=== PATIENT | female | born 1975 | race Caucasian/White ===

== ENCOUNTER 2024-09-18 08:59 | Emergency (ER) | payer BC ==
[2024-09-18 10:13] LABS: Absolute Eosinophils 0.1 K/uL (0-0.5); Absolute Lymphocytes (CBC) 1.3 K/uL (0.7-4.9); Absolute Monocytes 0.8 K/uL (0.1-1.3); Absolute Neutrophil 5.8 K/uL (1.8-8.0); Basophils % 0.4 % (0-1.3); Eosinophils % 1.2 % (0-4.4); Hematocrit 33.6 % (36.0-45.0); Hemoglobin 11.5 g/dL (12.0-15.0); Lymphocytes % 16.4 % (15.3-44.8); MCH 28.9 pg (27.0-35.0); MCHC 34.2 g/dL (32.0-36.0); MCV 84.5 fL (80-100); MPV 7.9 fL (7.6-11.3); Monocytes % 9.6 % (3.3-12.3); Neutrophils % 72.4 % (41.7-73.7); Nucleated Red Blood Cells % 0.1 % (0-0); Platelets 236 thou/uL (152-406); RBC Red Blood Cell Count 3.97 M/uL (3.86-4.86); Red Cell Distribution Width 12.8 % (12.1-15.2)
[2024-09-18 10:27] LABS: Anion Gap 7.1 mEq/L (5.0-15.0); BUN Blood Urea Nitrogen 15 mg/dL (7-18); Bicarbonate 27 mEq/L (21-32); Glomerular Filtration Rate 89 ml/min (=/>90); Glucose Level 103 mg/dL (74-106); Magnesium 1.8 mg/dL (1.6-2.4); NT PRO-BNP 127 pg/mL (<125); Potassium 4.1 mEq/L (3.5-5.1); Sodium Level 141 mEq/L (136-145)
[2024-09-18 10:29] LABS: Troponin High Sensitivity < 3.0 pg/mL (<58.9)
--- NOTE | 2024-09-18 10:53 | RAD REPORT ---
EXAMINATION: ONE VIEW CHEST XR CLINICAL INDICATION: PALPITATIONS TECHNIQUE: Frontal chest projection is submitted. Examination is limited by patient positioning and t echnique. COMPARISON: No prior exam. FINDINGS: The lungs are well inflated and clear. The heart is upper limit of normal in size. No displaced fract ures identified. IMPRESSION: No acute intrathoracic abnormalities.
--- NOTE | 2024-09-18 11:11 | ER ---
Nurse's Notes [facility] Name: Courtney Krause Age: 49 yrs Sex: Female : 1975 Arrival Date: 09/18/2024 Time: 08:59 Bed 17 Private MD: Diagnosis: Palpitations Presentation: 09/18 09:15 Chief complaint: EMS states: Near syncopal episode that became with palpitations, hb diaphoresis, and generally not feeling well when she got to work today. Coronavirus screen: At this time, the client does not indicate any symptoms associated with coronavirus-19. Ebola Screen: No symptoms or risks identified at this time. Initial Sepsis Screen: Does the patient meet any 2 criteria? No. Patient's initial sepsis screen is negative. Does the patient have a suspected source of infection? No. Patient's initial sepsis screen is negative. Risk Assessment: Do you want to hurt yourself or someone else? Patient reports no desire to harm self or others. Onset of symptoms was September 18, 2024. 09:15 Method Of Arrival: EMS: [facility] hb 09:15 Acuity: JOSE 3 hb Historical: - Allergies: 10:00 No Known Allergies; hb - Immunization history:: Adult Immunizations up to date. - Infectious Disease History:: Denies. - Family history:: not pertinent. - Social history:: Smoking status: Patient denies any tobacco usage or history of. - Hospitalizations: : No recent hospitalization is reported. Vital Signs: 09:15 BP 157 / 88; Pulse 59; Resp 16; Temp 98.1; Pulse Ox 98% ; hb ED Course: 09:04 Patient arrived in ED. rn 09:04 Prashant Garcia MD is Attending Physician. rn 09:53 Initial lab(s) drawn, by me, EKG done, by ED staff. Inserted saline lock: 20 gauge in kb4 right antecubital area, using aseptic technique. Blood collected. Flushed with 10 mL NS. 09:57 Carolyn Luong, PIERCE is Primary Nurse. hb 10:00 Triage completed. hb 10:00 Arm band placed on. hb 10:21 XRAY Chest (1 view) In Process Unspecified. EDMS Administered Medications: No medications were administered Outcome: 11:10 Discharge ordered by . rn 11:40 Patient left the ED. hb Signatures: Dispatcher [employer] Prashant Callejas MD MD rn Baxter, Heather, RN RN Indira Nicole kb4
--- NOTE | 2024-09-18 11:11 | EDPHYS ---
Physician Documentation [facility] Name: Courtney Krause Age: 49 yrs Sex: Female : 1975 Arrival Date: 09/18/2024 Time: 08:59 Bed 17 Private MD: ED Physician Prashant Garcia HPI: 09/18 09:13 This 49 yrs old Female presents to ER via Unassigned with complaints of palpitations. rn 09:13 The patient presents with a history of heart skipping beats. Onset: The rn symptoms/episode began/occurred this morning. Duration: The patient or guardian reports multiple episodes. Modifying factors: The symptoms are aggravated by nothing. The symptoms are alleviated by nothing. Associated signs and symptoms: Pertinent negatives: chest pain, fever, syncope. Severity of symptoms: At their worst the symptoms were mild in the emergency department the symptoms have improved. The patient has experienced similar episodes in the past. Patient reports feeling palpitations this morning while at work. No syncope. Did feel mild dizziness. No chest pain or shortness of breath. Has history of SVT but states this felt different. Takes atenolol. No fever or chills. No recent illness. No vomiting or diarrhea. No medication changes.. Historical: - Allergies: 10:00 No Known Allergies; hb - Immunization history:: Adult Immunizations up to date. - Infectious Disease History:: Denies. - Family history:: not pertinent. - Social history:: Smoking status: Patient denies any tobacco usage or history of. - Hospitalizations: : No recent hospitalization is reported. ROS: 09:13 Constitutional: Negative for fever, chills, and weight loss, Neck: Negative for injury, rn pain, and swelling, Cardiovascular: Positive for palpitations Respiratory: Negative for shortness of breath, cough, wheezing, and pleuritic chest pain, Abdomen/GI: Negative for abdominal pain, nausea, vomiting, diarrhea, and constipation, MS/Extremity: Negative for injury and deformity, Skin: Negative for injury, rash, and discoloration, Neuro: Negative for headache, weakness, numbness, tingling, and seizure, Exam: 09:13 Constitutional: This is a well developed, well nourished patient who is awake, alert, rn and in no acute distress. Cardiovascular: Regular rate and rhythm. No pulse deficits. Respiratory: No increased work of breathing, no retractions or nasal flaring. Abdomen/GI: Soft, non-tender MS/ Extremity: Pulses equal, no cyanosis. Neurovascular intact. Full, normal range of motion. Equal circumference. Neuro: Awake and alert, GCS 15 Vital Signs: 09:15 BP 157 / 88; Pulse 59; Resp 16; Temp 98.1; Pulse Ox 98% ; hb MDM: 09:04 Medical Screening Exam initiated rn 11:09 Differential diagnosis: arrythmia, dehydration, stress disorder. Data reviewed: vital rn signs, nurses notes, lab test result(s), EKG, radiologic studies, plain films, and as a result, I will discharge patient. Counseling: I had a detailed discussion with the patient and/or guardian regarding the historical points, exam findings, and any diagnostic results supporting the discharge/admit diagnosis, lab results, radiology results, the need for outpatient follow up, to return to the emergency department if symptoms worsen or persist or if there are any questions or concerns that arise at home. Special discussion: I discussed with the patient/guardian in detail that at this point there is no indication for admission to the hospital. It is understood, however, that if the symptoms persist or worsen the patient needs to return immediately for re-evaluation. ED course: Patient back to baseline, no PVCs anymore. No acute electrolyte abnormalities and workup. Troponin negative. BNP negative. Chest x-ray negative. Patient requesting to go home and feels much better. Will discharge home with return precautions.. 09/18 09:05 Order name: Basic Metabolic Panel; Complete Time: 10:54 rn 09/18 09:05 Order name: CBC with Diff; Complete Time: 10:54 rn 09/18 09:05 Order name: Magnesium; Complete Time: 10:54 rn 09/18 09:05 Order name: NT PRO-BNP; Complete Time: 10:54 rn 09/18 09:05 Order name: Troponin HS; Complete Time: 10:54 rn 09/18 09:05 Order name: Test, Urine rn 09/18 09:05 Order name: Urinalysis w/ reflexes; Complete Time: 11: rn 09/18 09:05 Order name: XRAY Chest (1 view); Complete Time: 10:54 rn 09/18 09:05 Order name: Cardiac monitoring; Complete Time: 10: rn 09/18 09:05 Order name: EKG - Nurse/Tech; Complete Time: 10:27 rn 09/18 09:05 Order name: IV Saline Lock; Complete Time: 10:27 rn 09/18 09:05 Order name: Labs collected and sent; Complete Time: 10:27 rn 09/18 09:05 Order name: O2 Per Protocol; Complete Time: 10:27 rn 09/18 09:05 Order name: O2 Sat Monitoring; Complete Time: 10:27 rn Administered Medications: No medications were administered Disposition Summary: 09/18/24 11:10 Discharge Ordered Notes: Location: Home rn Problem: new rn Symptoms: have improved rn Condition: Stable rn Diagnosis - Palpitations rn Followup: rn - With: Private Physician - When: As needed - Reason: Recheck today's complaints, Re-evaluation by your physician Discharge Instructions: - Discharge Summary Sheet rn - Palpitations rn - Premature Ventricular Contraction rn Forms: - Medication Reconciliation Form rn - Antibiotic patternator - Prescription Opioid Use rn - Patient Portal Instructions rn - Leadership Thank You Letter rn Signatures: Dispatcher [employer] EDMS Prashant Garcia MD MD rn Baxter, Heather, RN RN Corrections: (The following items were deleted from the chart) 09:05 09:05 BASIC METABOLIC PANEL+C.LAB.BRZ ordered. EDMS EDMS 09:05 09:05 CBC+H.LAB.BRZ ordered. EDMS EDMS 09:05 09:05 MAGNESIUM+C.LAB.BRZ ordered. EDMS EDMS 09:05 09:05 PROBNP+C.LAB.BRZ ordered. EDMS EDMS 09:05 09:05 Troponin High Sensitivity+C.LAB.BRZ ordered. EDMS EDMS 09:05 09:05 Test, Urine+UC.LAB.BRZ ordered. EDMS EDMS 09:05 09:05 Urinalysis+U.LAB.BRZ ordered. EDMS EDMS 09:05 09:05 Chest Single View+RAD.RAD.BRZ ordered. EDMS EDMS
[2024-09-18 11:23] LABS: Specific Gravity 1.018 (1.005-1.030)
[2024-09-18 11:24] LABS: Renal Epithelial <5 /HPF (None Seen); Specific Gravity 1.018 (1.005-1.030); Sqamous Epithelial <5 /HPF (None Seen); Urine Bacteria None Seen /HPF (<20); Urine Bilirubin NEGATIVE (Negative); Urine Blood Negative (Negative); Urine Clarity Clear (Clear); Urine Color Light-Yellow (Yellow); Urine Culture Reflex Order NOT NEEDED; Urine Glucose NEGATIVE (Negative); Urine Ketones NEGATIVE (Negative); Urine Microscopic Reflex YN ORDER UMIC; Urine Mucus Slight /HPF (None Seen); Urine Nitrite NEGATIVE (Negative); Urine Protein NEGATIVE (Negative); Urine RBC None Seen /HPF (None Seen); Urine Urobilinogen Normal (Normal); Urine WBC <5 /HPF (<5); Urine pH 5.5 (5.0-7.0)
[2024-09-19 03:33] VITALS: BP 157/88; TEMP 98.1; O2SAT 98
--- NOTE | 2024-09-21 12:13 | EKG ---
Test Date: 2024-09-18 Test Time: 09:37:34 Literacy Coordinator: DEANA MEASUREMENT RESULTS: Intervals: Rate: 62 DE: 164 QRSD: 92 QT: 432 QTc: 438 Protivin: P: 41 DE: 164 QRS: 28 T: 54 INTERPRETIVE STATEMENTS: Normal sinus rhythm Septal infarct, age undetermined Abnormal ECG No previous ECG available for comparison Electronically Signed On 09-21-24 12:10:50 [employer] by Tino Berry
== END 2024-09-18 11:40 | disposition home or self-care (01) ==
LOC: ER 08:59
DX: R00.2 Palpitations (principal)
CPT/HCPCS: 36415; 71045; 80048; 81001; 81025; 83735; 83880; 84484; 85025; 93005; 99284